=== PATIENT | male | born 1955 | race Caucasian/White ===

== ENCOUNTER 2018-08-26 07:38 | Emergency (ER) | payer OTHER ==
[~2018-08-26] VITALS: Ht 182.9 cm; Wt 90.7 kg
[2018-08-26] MEDS ORDERED: ASPIRIN325 MG PO (08:07)
[2018-08-26] MEDS ORDERED: TOPROL XL25 MG PO (10:05)
--- NOTE | 2018-08-26 22:40 | EKG ---
[facility] [address] [facility] [place] [address] Signed Atrial fibrillation with rapid ventricular response Abnormal ECG No previous ECGs available Confirmed by ISSAC NICKERSON MD ([id number]) on 08/26/2018 10:40:24 PM Electronically Signed By: ISSAC NICKERSON MD 08/26/18 2240 PATIENT NAME: ROBIN AVELAR ANJU Electrocardiogram DATE OF : 57 PHYSICIAN: ISSAC NICKERSON MD REPORT #: [id number] REPORT IS CONFIDENTIAL AND NOT TO BE RELEASED WITHOUT AUTHORIZATION
== END 2018-08-26 10:42 | disposition home or self-care (01) ==
LOC: ED 07:38
DX: I48.91 Unspecified atrial fibrillation (principal); Z79.82 Long term (current) use of aspirin
CPT/HCPCS: 0296T; 0297T; 0298T; 71046; 80053; 83735; 83880; 84443; 84484; 85025; 93005; 93010; 99285-25

== ENCOUNTER 2020-04-09 01:59 | Emergency (ER) | payer OTHER ==
[~2020-04-09] VITALS: Ht 182.9 cm; Wt 117.9 kg
[~2020-04-09 01:59] MED LIST: ASPIRIN325 MG PO; TOPROL XL25 MG PO
[2020-04-09] MEDS ORDERED: METOPROLOL SUCC25 MG PO (02:18)
[2020-04-09] MEDS ORDERED: ELIQUIS5 MG PO (02:18)
[2020-04-09] MEDS ORDERED: NORCO 5-325 TA1 EACH PO (04:20)
[2020-04-09] MEDS ORDERED: FLOMAX0.4 MG PO (04:20)
== END 2020-04-09 04:39 | disposition home or self-care (01) ==
LOC: ED 01:59
DX: N13.2 Hydronephrosis with renal and ureteral calculous obstruction (principal); I48.91 Unspecified atrial fibrillation; Z79.899 Other long term (current) drug therapy
CPT/HCPCS: 74176; 80053; 81001; 83690; 85025; 85610; 85730; 99284-25

== ENCOUNTER 2020-09-20 07:38 | Day surgery (SDC) | payer OTHER ==
[~2020-09-20] VITALS: Ht 182.9 cm; Wt 97.0 kg
[~2020-09-20 07:38] MED LIST changes: +ELIQUIS5 MG PO; +FLOMAX0.4 MG PO; +METOPROLOL SUCC25 MG PO; +NORCO 5-325 TA1 EACH PO
--- NOTE | 2020-09-20 10:54 | NUR ---
09/20/20 1054 Karolina Guy 1050: PT ARRIVES IN PACU FOR RECOVERY. VSS, RESP EVEN AND UNLABORED. O2 SAT >98% ON 6L VIA FACEMASK. PT NON REACTIVE. SCDS IN PLACE 1053: PT REACTIVE TO VERBAL AND TACTILE STIMULI
--- NOTE | 2020-09-20 12:15 | NUR ---
PATIENT ASSISTED TO BATHROOM. PATIENT STATES THAT HE FEELS LIKE HE NEEDS TO HAVE A BOWEL MOVEMENT. PATIENT ABLE TO VOID PER URINAL 425 ML OF BLOODY URINE. PATIENT STATES NO DIFFICULTY WITH URINATION.
--- NOTE | 2020-09-20 12:55 | NUR ---
PT FAMILY RELAYS MESSAGE TO PASTOR GIVENS THAT PT WAS ABLE TO VOID AND HAVE BOWEL MOVEMENT. THIS RN EMPTIES APPROX 100 MLS RED URINE WITH NO CLOTS FROM URINAL AND SMALL BROWN FORMED BOWEL MOVEMENT FROM BEDSIDE COMMODE. PT IN BED WITH SPOUSE AT BEDSIDE.
--- NOTE | 2020-09-20 13:56 | NUR ---
PATIENT RESTING QUIETLY. CALL LIGHT WITHIN REACH. PATIENT STATES PRESSURE TO BLADDER AREA HAS DECREASED. PATIENT STATES NO NAUSEA OR PAIN AT THIS TIME. PATIENT STATES STILL FEELING LETHARGIC. WILL CONTINUE TO MONITOR.
--- NOTE | 2020-09-20 14:20 | NUR ---
PT ALERT, ORIENTED AND SUPPORTED BY KINJAL IN DARKENED RM. PT SEEMS PREPARED, ALL QUESTIONS ASKED ANSWERED. PT DID REQUEST PRAYER. WILL FOLLOW NEEDED
--- NOTE | 2020-09-23 16:46 | OR ---
[facility] [address] [place], [place] [address] Signed DATE OF OPERATION: 09/20/2020 SURGEON: Philomena Pastor MD PREOPERATIVE DIAGNOSIS: Long-standing 5 mm distal left ureteral calculus. POSTOPERATIVE DIAGNOSES: 1. Long-standing 5 mm distal left ureteral calculus. 2. Distal left ureteral stricture, secondary to long-standing 5 mm distal left ureteral calculus. NAMES OF PROCEDURES: 1. Diagnostic cystoscopy with left retrograde pyelogram. 2. Semi-rigid ureteroscopy with laser lithotripsy and basket extraction of stone fragments. 3. Insertion of a 6 x 26 cm double-J ureteral stent into the left ureter. ANESTHESIA: General. ESTIMATED BLOOD LOSS: Minimal. COMPLICATIONS: None. SPECIMENS: Stone fragments sent to the lab for stone analysis. DRAINS: A 6 x 26 cm double-J ureteral stent inserted into the left collecting system. INDICATION FOR PROCEDURE: Mr. Friedman is a very pleasant 65-year-old gentleman with no previous history of kidney stones, who presented to my clinic in early April with a relatively recent history of new onset left-sided flank pain. He had been seen in the emergency department and underwent a CT scan, which revealed a 5 mm left proximal ureteral calculus. At that time, the patient elected to attempt a trial of passage of the stone. He returned to the clinic two or three times each time with a KUB that revealed the stone had passed Electronically Signed By: PHILOMENA PASTOR MD 09/23/20 1646 PATIENT NAME: ROBIN FRIEDMAN OPERATIVE REPORT DATE OF : 57 REPORT #: [id number] PHYSICIAN: PHILOMENA PASTOR MD PCP: SOHA PAULSON REPORT IS CONFIDENTIAL AND NOT TO BE RELEASED WITHOUT AUTHORIZATION [facility] [address] [place], [place] [address] Signed down to the distal left ureter. All the while he adamantly refused to undergo surgery and wanted to continue to try to pass the stone. He recently contacted my clinic stating that he had still not experienced passage of his left ureteral calculus. He underwent a KUB which revealed a 5 mm stone about 2 cm above the left ureterovesical junction. After around five months of attempting of a trial of passage of the stone, the patient has finally agreed to undergo ureteroscopic extraction of the stone. After discussion of the risks and benefits of the procedure, the patient has now elected to proceed. OPERATIVE FINDINGS: 1. On cystoscopy, there was no evidence of any suspicious masses, lesions, or stones. Bilateral ureteral orifices are in their normal anatomic location and effluxing clear urine. 2. Digital rectal examination reveals a 40 g prostate. It is soft, smooth and symmetric with no focal nodules. 3. Left retrograde pyelogram was performed, which reveals a filling defect in the distal left ureter, consistent with his known obstructing left distal ureteral calculus. 4. A semi-rigid ureteroscopy was performed on the left distal ureter. Around a cm superior to the left ureterovesical junction, there is a very tight stricture that was encountered. Thankfully, the stricture is very sure and I was able to push through the dense tissue onto the other side of the stricture. I suspect that the strictures presence is due to the patient's longstanding attempts to try to pass the stone and ultimately caused a reactive injury to the distal left ureter. 5. This 5 mm stone was fragmented using a holmium laser and a 270 micron fiber at 8 and 0.8 settings. The stone fragmented easily and 100% of the stone was extracted successfully from the left ureter. 6. A 6 x 26 cm double-J ureteral stent was inserted into the patient's left ureter under direct visualization without difficulty. DESCRIPTION OF PROCEDURE: After informed consent was obtained, the patient was taken back to the operating room. [facility] operating room table, where general anesthesia was induced. He was placed in the dorsal lithotomy position and his genitalia prepped and draped in the sterile fashion. Using a 30-degree lens on a 22.5-Australian introducer, rigid cystoscope was inserted through his urethra into his bladder under direct visualization. Panendoscopic views of the bladder were then obtained. Please see above findings. Attention was turned to the left ureteral orifice. A cone-tipped catheter was used to perform a left retrograde pyelogram. Please see above findings. I then inserted a 0.035 Sensor wire into the left ureter and confirmed adequate placement via fluoroscopy. This was set aside to be used as a safety wire. I then advanced a short semi-rigid ureteroscope into the left ureteral orifice. I made it about 2 cm and then visualized a very tight stricture in the distal left ureter. I passed another guidewire Electronically Signed By: PHILOMENA PASTOR MD 09/23/20 5057 PATIENT NAME: ROBIN FRIEDMAN OPERATIVE REPORT DATE OF : 57 REPORT #: [id number] PHYSICIAN: PHILOMENA PASTOR MD PCP: SOHA PAULSON REPORT IS CONFIDENTIAL AND NOT TO BE RELEASED WITHOUT AUTHORIZATION [address] [address] Signed through the ureteroscope and used this to guide my way through the stricture. Fortunately, this was short and I was able to pop through the scar tissue and continue my way up the ureter. Not long after noting the stricture I was able to visualize the 5 mm stone. The stone was fragmented using a 270 micron fiber and a holmium laser at 8 and 0.8 settings. The stone fragmented quite easily and I was able to extract 100% of the stone burden from the left ureter with the stricture now dilated, I was easily able to pass the scope through the distal left ureter. I passed a Sensor wire through the scope and into the left ureter. The ureteroscope was then removed fully intact. Over the wire, I passed a 6 x 26 cm double-J ureteral stent into the left ureter under direct visualization. Once the wire was pulled, I could appreciate an adequate coil within the left renal pelvis. An adequate distal coil was also noted on cystoscopy. The stone fragments were then retrieved from the patient's bladder using a cystoscope. The stones were then placed in a specimen cup to be sent to pathology for evaluation. The patient's bladder was then drained and the cystoscope was removed. A digital rectal examination was then performed. Please see above findings. The procedure was then terminated. The patient tolerated the procedure well without any complication. He will now be transferred to the postanesthesia care unit in stable condition. DISPOSITION: I did discuss the details of today's procedure with the patient's and answered all of her questions. I informed her that I did encounter a stricture in the left distal ureter that I suspect is related to reactive inflammation from having the stone present in his ureter for approximately five months. She verbalized understanding of this concept today. The patient will need to have to keep the stent in place for at least a month and has been scheduled to return to clinic in approximately a month to undergo cystoscopy, left ureteral stent extraction. He will undergo an IVP around three or four months thereafter to be sure his left ureter remains patent. He will be sent home today with Cipro 500 mg p.o. b.i.d. for a total of seven days, along with oxycodone 5 mg one to two tablets p.o. q.6 hours p.r.n. pain, dispense #50. MD PAYTON Redd/MODL /[id number] Electronically Signed By: PHILOMENA PASTOR MD 09/23/20 1646 PATIENT NAME: ROBIN FRIEDMAN OPERATIVE REPORT DATE OF : 57 REPORT #: [id number] PHYSICIAN: PHILOMENA PASTOR MD PCP: SOHA PAULSON REPORT IS CONFIDENTIAL AND NOT TO BE RELEASED WITHOUT AUTHORIZATION [address] [place] [address] Signed Copies: ~ Electronically Signed By: PHILOMENA PASTOR MD 09/23/20 1646 PATIENT NAME: ROBIN FRIEDMAN OPERATIVE REPORT DATE OF : 57 REPORT #: [id number] PHYSICIAN: PHILOMENA PASTOR MD PCP: SOHA PAULSON REPORT IS CONFIDENTIAL AND NOT TO BE RELEASED WITHOUT AUTHORIZATION
== END 2020-09-20 14:55 | disposition home or self-care (01) ==
LOC: OPS 07:38 → DS 07:39 → OPS 09:00
PROVIDERS: ATTEND Urology
PROC: 0TC78ZZ Extirpation of Matter from Left Ureter, Via Natural or Artificial Opening Endoscopic (ICD-10-PCS; principal; 2020-09-20 09:00)
DX: N20.1 Calculus of ureter (principal); I48.11 Longstanding persistent atrial fibrillation; G47.33 Obstructive sleep apnea (adult) (pediatric); Z99.11 Dependence on respirator [ventilator] status; Z79.01 Long term (current) use of anticoagulants
CPT/HCPCS: 00918; 74420; 82365; C1769; C2617; J0690; J1100; J1885; J2250; J2405; J2704; J2765; J3010; J7121; Q9967